=== PATIENT | female | born 1970 | race Hispanic/Latino ===

== ENCOUNTER 2021-04-30 14:17 | Outpatient (CLI) | payer OTHER | END 2021-04-30 21:07 | disposition home or self-care (01) | LOC: US 14:17 | PROVIDERS: ATTEND Internal Medicine | DX: L03.116 Cellulitis of left lower limb (principal); L03.115 Cellulitis of right lower limb; R60.9 Edema, unspecified; D58.2 Other hemoglobinopathies ==